=== PATIENT | female | born 1995 | race Two or more races ===

== ENCOUNTER 2021-07-11 12:49 | Observation (INO) | payer MEDICAID ==
[2021-07-11] MEDS ORDERED: PREN-96 PO (14:01)
== END 2021-07-11 17:48 | disposition home or self-care (01) ==
LOC: LDRP 12:49
PROVIDERS: ADMIT Obstetrics & Gynecology; ATTEND Obstetrics & Gynecology
DX: O26.892 Other specified pregnancy related conditions, second trimester (principal); R10.9 Unspecified abdominal pain; Z3A.21 21 weeks gestation of pregnancy; W01.0XXA Fall on same level from slipping, tripping and stumbling without subsequent striking against object, initial encounter; Y93.89 Activity, other specified; Y92.89 Other specified places as the place of occurrence of the external cause; Y99.9 Unspecified external cause status; Y99.8 Other external cause status
CPT/HCPCS: 59025; 76815; 81002; G0378

== ENCOUNTER 2021-11-19 11:00 | Observation (INO) | payer MEDICAID ==
[~2021-11-19] VITALS: Ht 162.6 cm; Wt 79.8 kg
[~2021-11-19 11:00] MED LIST: PREN-96 PO
== END 2021-11-19 12:54 | disposition home or self-care (01) ==
LOC: LDRP 11:00
PROVIDERS: ADMIT Obstetrics & Gynecology; ATTEND Obstetrics & Gynecology
DX: O48.0 Post-term pregnancy (principal); O62.9 Abnormality of forces of labor, unspecified; Z3A.40 40 weeks gestation of pregnancy
CPT/HCPCS: 59025; 76818; 81002; 94760; G0378

== ENCOUNTER 2021-11-21 19:07 | Observation (INO) | payer MEDICAID | END 2021-11-21 22:04 | disposition home or self-care (01) | LOC: LDRP 19:07 | PROVIDERS: ADMIT Obstetrics & Gynecology; ATTEND Obstetrics & Gynecology | DX: O48.0 Post-term pregnancy (principal); O36.8330 Maternal care for abnormalities of the fetal heart rate or rhythm, third trimester, not applicable or unspecified; Z3A.40 40 weeks gestation of pregnancy | CPT/HCPCS: 59025; 76818; 81002; 94760; G0378 ==

== ENCOUNTER 2021-11-23 15:15 | Inpatient (IN) | payer MEDICAID ==
[~2021-11-23] VITALS: Ht 162.6 cm; Wt 78.9 kg
[2021-11-23] MEDS ORDERED: PHISODERM TOP SOLN 240ML BTL TOP PRN (17:15)
[2021-11-23] MEDS ORDERED: DERMOPLAST 60ML BOTTLE TOP PRN (17:15)
[2021-11-23] MEDS ORDERED: PROMETHAZINE HCL 25 MG/ML 1ML IV PRN (17:15)
[2021-11-23] MEDS ORDERED: LIDOCAINE 2%HCL (LOCAL ANESTH.) INJ 10ml MDV IJ PRN (17:15)
[2021-11-23] MEDS ORDERED: BUTORPHANOL TARTRATE 2 MG/1 ML VIAL IV PRN ×2 (17:15)
[2021-11-23] MEDS: LACTATED RINGER'S 1,000 ML IV SCH (18:03)
[2021-11-23 18:06] LABS: Basophils # (auto) 0 10 ^3/uL (0-0.2); Basophils % (auto) 0.2 % (0.0-2.0); Eosinophils # (auto) 0 10 ^3/uL (0-0.8); Eosinophils % (auto) 0.4 % (0.0-7.0); Hematocrit 36.8 % (36.0-46.0); Hemoglobin 12.2 g/dL (12.2-16.2); Lymphocytes # (auto) 0.9 10 ^3/uL (0.4-5.4); Lymphocytes % (auto) 13.1 % (10.0-50.0); Mean Corpuscular Hemoglobin 29.6 pg (28.0-32.0); Mean Corpuscular Hgb Conc. 33.3 g/dL (32.0-36.0); Monocytes # (auto) 0.3 10 ^3/uL (0-1.3); Monocytes % (auto) 4.7 % (0.0-12.0); Neutrophils # (auto) 5.6 10 ^3/uL (1.6-8.6); Neutrophils % (auto) 81.6 % (37.0-80.0); Red Blood Cells 4.14 10^6/uL (4.0-5.20); Red Cell Distribution Width 13.7 % (11.8-14.3); White Blood Cell 6.9 10^3/uL (4.4-10.8)
[2021-11-23 18:06] LABS: Urine Bacteria FEW /hpf (None Seen); Urine Blood Negative /uL (Negative); Urine Mucus FEW (None Seen); Urine Specific Gravity 1.015 (1.001-1.035); Urine WBC 4 /hpf (0 - 5)
[2021-11-23 18:14] LABS: INR 0.87 (0.9-1.15); Partial Thromboplastin Time 27.6 sec (24.6-33.4)
[2021-11-23 18:16] LABS: Albumin 2.5 g/dL (3.4-5.0); Calcium 8.6 mg/dL (8.5-10.1); Potassium 3.4 mmol/L (3.5-5.1)
[2021-11-23 18:25] LABS: Bilirubin, Total 0.3 mg/dL (0.2-1.0); Total Protein 5.9 g/dL (6.4-8.2)
[2021-11-23] MEDS: miSOPROStol 50 MCG per PRE-CUT 1/2 TAB PO PRN ×2 (19:34→23:36)
[2021-11-23 20:33] LABS: Alcohol, Urine < 3.0 mg/dL (0-10); Amphetamine Screen, Urine NEGATIVE (NEGATIVE); Barbiturate Scree,Urine NEGATIVE (NEGATIVE); Benzodiazephine Screen, Urine NEGATIVE (NEGATIVE); Cannabinoid Screen, Urine NEGATIVE (NEGATIVE); Cocaine Screen, Urine NEGATIVE (NEGATIVE); Opiate Scree,Urine NEGATIVE (NEGATIVE); Phencyclidine Screen, Urine NEGATIVE (NEGATIVE)
[2021-11-24] MEDS: LACTATED RINGER'S 1,000 ML IV SCH ×4 (00:20→12:58)
[2021-11-24] MEDS ORDERED: ePHEDrine SULFATE 50 MG/ML AMP IV ONE ×2 (07:00→07:15)
[2021-11-24] MEDS ORDERED: ROPIVACAINE HCL 200 ML EPI SCH ×2 (07:00→07:15)
[2021-11-24] MEDS ORDERED: LIDOCAINE HCL 2 %PF INJ 10ML AMP IJ ONE ×3 (07:00→11:00)
[2021-11-24] MEDS ORDERED: fentaNYL CITRATE 100 MCG/2 ML VL IV ONE ×3 (07:00→11:00)
[2021-11-24] MEDS ORDERED: TERBUTALINE SULFATE 1 MG/ML 1ML VIAL SC PRN (07:00)
[2021-11-24] MEDS ORDERED: NS/OXYTOCIN 20UNITS 500 ML IV ONE ×2 (07:00→07:30)
[2021-11-24] MEDS ORDERED: NS/OXYTOCIN 20UNITS 1,000 ML IV SCH (07:00)
[2021-11-24] MEDS ORDERED: NALOXONE HCL 0.4 MG/ML VIAL IV ONE ×2 (07:00→07:15)
[2021-11-24] MEDS ORDERED: Lidocaine W-Epinephrine 1.5%-1:200,000 INJ 10ml Vial ONE (08:02)
[2021-11-24] MEDS: WITCH HAZEL-GLYCERIN PAD TOP PRN (17:32)
[2021-11-24] MEDS ORDERED: ONDANSETRON ODT 4 MG TAB PO PRN (18:00)
[2021-11-24] MEDS ORDERED: ACETAMINOPHEN 325 MG TAB PO PRN (18:00)
[2021-11-24] MEDS: IBUPROFEN 800 MG TAB PO SCH (19:12)
[2021-11-24] MEDS: DOCUSATE SOD 100 MG CAP PO SCH (22:31)
[2021-11-25] MEDS: IBUPROFEN 800 MG TAB PO SCH ×5 (00:54→23:34)
[2021-11-25] MEDS ORDERED: IBUP800T26 PO (05:57)
[2021-11-25] MEDS ORDERED: DOCU100C10 PO (05:57)
[2021-11-25 08:06] LABS: RPR Non Reactive (Non Reactive)
[2021-11-25] MEDS ORDERED: RHO (D) IMMUNE GLOBULIN 300 MCG INJ IM ONE (08:30)
[2021-11-25] MEDS: WITCH HAZEL-GLYCERIN PAD TOP PRN (10:49)
[2021-11-25 11:00] VITALS: BP 100/55
[2021-11-25 15:11] VITALS: BP 102/62
[2021-11-25 15:36] VITALS: BP 94/64
[2021-11-25] MEDS: DOCUSATE SOD 100 MG CAP PO SCH (22:29)
[2021-11-26 07:00] VITALS: BP 109/71
== END 2021-11-26 10:41 | disposition home or self-care (01) | DRG 560 ==
LOC: LDRP 15:15 → OBSVTOIN 16:25 → LDRP 11-24 20:15
PROVIDERS: ADMIT Obstetrics & Gynecology; ATTEND Obstetrics & Gynecology
PROC: 10E0XZZ Delivery of Products of Conception, External Approach (ICD-10-PCS; principal; 2021-11-24)
PROC: 0KQM0ZZ Repair Perineum Muscle, Open Approach (ICD-10-PCS; 2021-11-24)
PROC: 3E0R3BZ Introduction of Anesthetic Agent into Spinal Canal, Percutaneous Approach (ICD-10-PCS; 2021-11-24)
PROC: 00HU33Z Insertion of Infusion Device into Spinal Canal, Percutaneous Approach (ICD-10-PCS; 2021-11-24)
PROC: 3E0234Z Introduction of Serum, Toxoid and Vaccine into Muscle, Percutaneous Approach (ICD-10-PCS; 2021-11-25)
DX: O48.0 Post-term pregnancy (principal); Z37.0 Single live birth; O26.893 Other specified pregnancy related conditions, third trimester; O70.1 Second degree perineal laceration during delivery; Z20.822 Contact with and (suspected) exposure to COVID-19; O77.0 Labor and delivery complicated by meconium in amniotic fluid; Z3A.40 40 weeks gestation of pregnancy; Z67.40 Type O blood, Rh positive
CPT/HCPCS: 36415; 59025; 59409; 62282; 76818; 80053; 80307; 81001; 81002; 85025; 85610; 85730; 86592; 86850; 86900; 86901; 90384; 94760; 96360; 96361; 96365; 96366; 96372; G0378; J2001

== ENCOUNTER → 2024-08-15 | Outpatient (CLI) | payer MEDICAID ==
[~2024-08-15] MED LIST changes: +DOCU-265 PO; +IBUP-1455 PO
== END | disposition home or self-care (01) ==
LOC: LAB 13:46
PROVIDERS: ATTEND Obstetrics & Gynecology
DX: N91.2 Amenorrhea, unspecified (principal)
CPT/HCPCS: 36415; 84144; 84702

== ENCOUNTER 2025-02-20 09:11 | Outpatient (CLI) | payer MEDICAID ==
[2025-02-20 10:10] LABS: Hematocrit 38.7 % (36.0-46.0); Hemoglobin 13.5 g/dL (12.2-16.2); Mean Corpuscular Hemoglobin 31.1 pg (28.0-32.0); Mean Corpuscular Volume 89.2 fL (80.0-100.0); Nucleated Red Blood Cells % 0.1 %
[2025-02-22 07:07] LABS: Chlamydia Trachomatis, NAA Negative (Negative); Neisseria gonorrhoeae, NAA Negative (Negative)
== END 2025-02-20 17:00 | disposition home or self-care (01) ==
LOC: LAB 09:11
PROVIDERS: ATTEND Obstetrics & Gynecology
DX: Z34.80 Encounter for supervision of other normal pregnancy, unspecified trimester (principal); Z3A.00 Weeks of gestation of pregnancy not specified
CPT/HCPCS: 36415; 83036; 85025; 86780; 86850; 86900; 86901

== ENCOUNTER 2025-03-06 08:46 | Outpatient (CLI) | payer MEDICAID ==
[2025-03-08 06:06] LABS: Chlamydia Trachomatis, NAA Negative (Negative); Neisseria gonorrhoeae, NAA Negative (Negative)
== END 2025-03-06 17:00 | disposition home or self-care (01) ==
LOC: LAB 08:46
PROVIDERS: ATTEND Obstetrics & Gynecology
DX: Z34.00 Encounter for supervision of normal first pregnancy, unspecified trimester (principal); Z3A.00 Weeks of gestation of pregnancy not specified
CPT/HCPCS: 36415; 82951; 83036

== ENCOUNTER 2025-04-06 04:41 | Inpatient (IN) | payer MEDICAID ==
--- NOTE | 2025-04-05 09:48 | DVHHP ---
ADMIT DATE: 04/06/2025 CHIEF COMPLAINT: Desires repeat section. HISTORY OF PRESENT ILLNESS: The patient is a female with due date of 04/12. Estimated gestational age of 39 weeks. Admitted for repeat section. The patient has been laureen. She wishes to have repeat section. PAST MEDICAL HISTORY: None. PAST SURGICAL HISTORY: x1. SOCIAL HISTORY: None. FAMILY HISTORY: None. ALLERGIES: No known drug allergies. REVIEW OF SYSTEMS: Consistent with HPI. PHYSICAL EXAMINATION: VITAL SIGNS: Stable, afebrile. HEENT: Within normal limits. CARDIOVASCULAR: Regular rate and rhythm. LUNGS: Clear to auscultation. BREASTS: Symmetrical. No masses. ABDOMEN: Gravid. Positive heart. PELVIC: Deferred. EXTREMITIES: No clubbing, cyanosis, or edema. IMPRESSION: * Term with previous section x1. * Desires repeat section. PLAN: Repeat section. Informed consent was obtained. Risks, complications of surgery including infection, bleeding, hematoma formation discussed with the patient. Risk of DVT, pulmonary embolism discussed with the patient. The patient fully understands. All questions answered. The patient wishes to proceed with planned procedure. DO TIERA Paz/ TID: [id number] RECEIPT: [id number]
[2025-04-05 10:09] LABS: Hematocrit 37.9 % (36.0-46.0); Hemoglobin 12.8 g/dL (12.2-16.2); Mean Corpuscular Hemoglobin 30.3 pg (28.0-32.0); Mean Corpuscular Volume 89.4 fL (80.0-100.0); Nucleated Red Blood Cells % 0.2 %
[2025-04-05 10:21] LABS: Urine Protein, UAD Negative (Negative)
[2025-04-05 10:23] LABS: Alanine Aminotransferase 13 U/L (7-40); Albumin 3.5 g/dL (3.2-4.8); Anion Gap 12 (5-15); BUN/Creatinine Ratio 11.8 (10.0-20.0); Calcium 8.8 mg/dL (8.7-10.4); Carbon Dioxide 21 mmol/L (20-31); Potassium 3.6 mmol/L (3.5-5.1); Sodium 140 mmol/L (136-145); Total Protein 5.8 g/dL (5.7-8.2)
[2025-04-05 10:24] LABS: Alkaline Phosphatase 151 U/L (46-116); Bilirubin, Total 0.4 mg/dL (0.2-1.0); Blood Urea Nitrogen 6 mg/dL (9-23); Chloride 107 mmol/L (98-107); Glucose 109 mg/dL (74-106); INR 0.88 (0.9-1.15); Partial Thromboplastin Time 24.4 SEC (24.5-34.5); Prothrombin Time 9.4 sec (9.3-11.8)
[2025-04-05 10:33] LABS: Amphetamine Screen, Urine Neg (NEGATIVE); Barbiturate Scree,Urine Neg (NEGATIVE); Benzodiazephine Screen, Urine Neg (NEGATIVE); Cannabinoid Screen, Urine Neg (NEGATIVE); Cocaine Screen, Urine Neg (NEGATIVE); Opiate Scree,Urine Neg (NEGATIVE); Phencyclidine Screen, Urine Neg (NEGATIVE)
[~2025-04-06] VITALS: Ht 160 cm; Wt 81.6 kg
[2025-04-06] VITALS (16 sets, daily range): BP systolic 94–116; BP diastolic 52–71; PULSE 61–95; RESP 16–18; TEMP 97.4–98; O2SAT 93–99
[2025-04-06] MEDS: LACTATED RINGER'S 1,000 ML IV SCH (06:21)
[2025-04-06] MEDS: ceFAZolin 2 GM/D5W50ml 50 ML IV ONE (06:22)
[2025-04-06] MEDS ORDERED: DOCU-94 PO (07:11)
[2025-04-06] MEDS ORDERED: IBUP-1456 PO (07:11)
[2025-04-06] MEDS ORDERED: HYDR-4072 PO (07:11)
[2025-04-06] MEDS: LACT. RINGERS/OXYTOCIN 20UNITS 1,000 ML IV ONE (07:15)
[2025-04-06] MEDS ORDERED: ceFAZolin 1GM/50ML 50 ML IV SCH (07:15)
[2025-04-06] MEDS ORDERED: ONDANSETRON HCL 4 MG/2 ML VIAL IV PRN ×2 (07:15→08:30)
[2025-04-06] MEDS ORDERED: MORPHINE SULF PF 5 MG/10 ML VIAL ONE (07:20)
[2025-04-06] MEDS ORDERED: fentaNYL CITRATE 100 MCG/2 ML VL ONE (07:20)
[2025-04-06] MEDS ORDERED: METOCLOPRAMIDE HCL 5MG/ml INJ 2ml VIAL ONE (07:21)
[2025-04-06] MEDS ORDERED: ONDANSETRON HCL 4 MG/2 ML VIAL ONE (07:21)
[2025-04-06] MEDS ORDERED: OXYTOCIN 10UNIT/ML 1ML VIAL ONE (07:33)
--- NOTE | 2025-04-06 07:56 | DVHOP2 ---
Operative Report DATE OF OPERATION:04/06/25 PREOPERATIVE DIAGNOSES: [term preg desires rcs,previous csx1] POSTOPERATIVE DIAGNOSES: [same] OPERATION PERFORMED: Repeat Section FINDINGS: [f] infant. Apgars of [8] and [9]. Weight [good] crying tone. [clear] amniotic fluid. Placenta and three-vessel were intact. Normal tubes, ovaries, and uterus. Moderate scar tissue. SURGEON: Dasha Baptiste D.O. SCREW MACHINE OPERATOR SWISS TYPE: restoration technician, jessica]. ANESTHESIOLOGIST: Geovanny liao ANESTHESIA: [Duramorph spinal, regional]. COMPLICATIONS: [none]. ESTIMATED BLOOD LOSS: [500] mL. BLOOD PRODUCTS USED: [none]. PROCEDURE IN DETAIL: The patient was taken to the operating room, placed in sitting position, and spinal was placed without difficulty. She was then prepped and draped in a sterile fashion. A low Pfannenstiel incision was made scapel. At this point, it was carried down through the rectus fascia, nicked in the midline, and carried laterally. The rectus muscles were in the midline. Peritoneum was identified and entered with sharp dissection. Vesicouterine peritoneum was taken off the lower uterine segment. A lower uterine transverse incision was made with a scalpel down the chorionic membranes, ruptured with hemostat. was in vertex position. One hand was placed in the lower uterine segment. Head was essentially delivered spontaneously. Nose and mouth were bulb suctioned. Shoulders and torso were delivered without difficulty. Again, pharynx, nose, and mouth were re-suctioned with vigorous crying tone. Cord was cut. The infant was handed off to the awaiting Respiratory. At this point, umbilical blood sample was taken. Placenta was removed. Uterus was exteriorized, cleared off all clots and debris, irrigated, and closed with a double layer of 0-Vicryl. The vesicouterine peritoneum was incorporated into this closure. We had complete hemostasis. EBL was [500] mL. The instrument, lap, and sponge count was correct x1. The uterus was placed back into the peritoneum. The peritoneal cavity was re-inspected and the lower uterine incision with good hemostasis. We closed the peritoneum with running continuous of 2-0 Vicryl. The Rectus Fascia was closed with 0-PDS, running continuous, looped-0. The skin was closed undermined, irrigated, and close with luh. CONDITION: The patient's and the infant's condition is stable and but guarded. Visit Coding OBGYN Date of Service: Apr 06, 2025 Billing Provider: DASHA BAPTISTE DO DELIVERY DRIVER ASSISTANT Common Visit Codes: [id number] INP/OBS CARE (HIGH) DELIVERY DRIVER ASSISTANT Procedure Codes: [id number] DELIVERY ONLY DASHA BAPTISTE DO Apr 06, 2025 07:56
[2025-04-06] MEDS ORDERED: KETOROLAC TROMETH 30 MG/ML 1ML VIAL ONE (07:58)
--- NOTE | 2025-04-06 07:58 | POSTOP ---
Post-Operative Note Post-Operative Note Preop Diagnosis term preg desires rcs,previous csx1 Postop Diagnosis: same Operation performed rcs Specimen baby girl,vx,apgars 8-9 Anesthesia: Regional Anesthesiologist: reyes Blood Loss(fluid mgmt) 500ml Surgeon Martin Baptiste Corking Machine Operator vale Implant na Complications & Mgmt none Date 04/06/25 Time 07:56 Visit Coding OBGYN Date of Service: Apr 06, 2025 Billing Provider: MARTIN BAPTISTE DO GENERAL MACHINIST Common Visit Codes: [id number] INP/OBS CARE (HIGH) GENERAL MACHINIST Procedure Codes: [id number] DELIVERY ONLY MARTIN BAPTISTE DO Apr 06, 2025 07:58
[2025-04-06] MEDS ORDERED: HYDROmorphone HCL 2 MG/ML VL/or syr IV PRN ×2 (08:30→10:30)
[2025-04-06] MEDS ORDERED: NALOXONE HCL 0.4 MG/ML VIAL IV PRN (08:30)
[2025-04-06] MEDS ORDERED: diphenhydrAMINE HCL 50 MG/1 ML VL IV PRN (08:30)
[2025-04-06] MEDS: ceFAZolin 1GM/50ML 50 ML IV SCH (13:48)
[2025-04-06] MEDS: RHO (D) IMMUNE GLOBULIN 300 MCG INJ IM ONE (16:47)
[2025-04-06 21:26] LABS: Hematocrit 35.5 % (36.0-46.0); Hemoglobin 12.1 g/dL (12.2-16.2); Mean Corpuscular Hemoglobin 30.3 pg (28.0-32.0); Mean Corpuscular Volume 88.8 fL (80.0-100.0); Nucleated Red Blood Cells % 0.0 %
[2025-04-06] MEDS: ACETAMINOPHEN IV 1000 MG/100ML (10MG/ML) IV PRN (22:24)
[2025-04-07] VITALS (10 sets, daily range): BP systolic 91–111; BP diastolic 52–71; PULSE 58–95; RESP 16–18; TEMP 97.8–98.1; O2SAT 94–99
--- NOTE | 2025-04-07 00:06 | DVHPN2 ---
Progress Note Date Seen: Apr 07, 2025 Subjective Crystal is sitting up in bed and baby on the R breast. Patient states she is unsure if baby is actually eating or just "sucking for comfort" SUBJECTIVE: -Lochia minimal -Clear liquid diet well tolerated. -Ambulating well w/o feeling dizzy or lightheaded. Jones catheter still in place -Pain relieved with IV medication PRN -Passing flatus but no BM yet. - w/o problem vital signs Vital Sign Date Time Temp Pulse Resp B/P (MAP) Pulse Ox O2 Delivery O2 Flow Rate FiO2 04/06/25 23:00 98.0 81 16 103/52 (69) 99 98.0 04/06/25 19:10 Room Air 04/06/25 08:21 0 96 Total Intake and Output 04/06/25 04/06/25 04/07/25 15:00 23:00 07:00 Intake Total 365 ml Output Total 445 ml 200 ml Balance -80 ml -200 ml medications Current Medications Medications Dose Ordered Sig/Dominique Route Start Time Stop Time Status Last Admin Dose Admin Lactated Ringer's 1,000 ml @ 125 mls/hr Q8H IV 04/06/25 05:00 04/06/25 16:53 125 MLS/HR Ondansetron HCl 4 mg Q4HP PRN IV 04/06/25 07:15 Diphenhydramine HCl 25 mg Q4HP PRN IV 04/06/25 08:30 Ondansetron HCl 4 mg Q4HP PRN IV 04/06/25 08:30 04/06/25 12:00 Cancel Cefazolin Sodium 50 ml @ 100 mls/hr Q8H IV 04/06/25 14:00 04/07/25 06:29 04/06/25 21:47 100 MLS/HR Acetaminophen 1,000 mg Q8HPRN PRN IV 04/06/25 10:30 04/07/25 10:29 04/06/25 22:24 1,000 MG Hydromorphone HCl 1 mg Q4HP PRN IV 04/06/25 10:30 laboratory and microbiology Laboratory Tests 04/06/25 20:55 04/05/25 09:25 Test 04/05/25 09:25 Range/Units Serum Glucose 109 H 74-106 mg/dL Objective OBJECTIVE: -A&O x4. No apparent distress. Affect appropriate -Afebrile, VSS -Chest: heart and lung sounds normal. -Breasts: Nipples intact w/o cracks or soreness -Abdomen: normal BS, soft, non-tender, no rebound or guarding, fundus firm @ U- 1, -Lower abdominal incision site with dressing dry and intact. No edema, erythema or induration -Extremities: no edema or tenderness Problems(with codes): (1) Status post delivery Assessment/Plan ASSESSMENT 29 yo now Post operative & ppd # 1 s/p repeat Section, doing well. Blood Type: A- Breast feeding Rubella Immune PLAN -Assisted patient with and discussed feeding cues. Answered all patient questions -Offer Rhogam before discharge -Continue pain management with IV medications as previously ordered. Will transition to PO medications in the AM -Regular diet OK. Increase fluid intake and fiber in diet to promote regular bowel movements, Laxative PRN -Educated patient on self-care -Continue routine care Plan discussed with: Patient, Spouse (asleep at bedside) Visit Coding OBGYN Date of Service: Apr 07, 2025 Billing Provider: DARRON العراقي CNM WHEEL BORER Common Visit Codes: [id number] INP/OBS CARE(MOD) DARRON العراقي CNM Apr 07, 2025 00:06
[2025-04-07] MEDS ORDERED: HYDROcodone-ACET 5/325MG TAB PO PRN ×2 (06:15)
[2025-04-07] MEDS ORDERED: BISACODYL 10 MG RECT SUPP PR PRN (06:15)
[2025-04-07] MEDS: IBUPROFEN 800 MG TAB PO PRN (07:06)
[2025-04-07 08:47] LABS: Hematocrit 38.6 % (36.0-46.0); Hemoglobin 13.2 g/dL (12.2-16.2); Mean Corpuscular Hemoglobin 30.5 pg (28.0-32.0); Mean Corpuscular Volume 89.3 fL (80.0-100.0); Nucleated Red Blood Cells % 0.0 %
[2025-04-07] MEDS: DOCUSATE SOD 100 MG CAP PO SCH (09:51)
[2025-04-07] MEDS: SIMETHICONE 80 MG CHEWABLE TABLET PO SCH (11:54)
[2025-04-08 03:00] VITALS: BP 97/71; PULSE 85; RESP 20; TEMP 97.8; O2SAT 99
--- NOTE | 2025-04-08 06:12 | DVHPN2 ---
Progress Note Date Seen: Apr 08, 2025 Subjective S: > Lochia minimal. > Regular diet well tolerated. > Ambulating and voiding well w/o feeling dizzy or lightheaded. > Pain relieved with oral analgesics. > Passing flatus but no BM yet. > w/o problem > Desires and Requests to be discharged today vital signs Vital Sign Date Time Temp Pulse Resp B/P (MAP) Pulse Ox O2 Delivery O2 Flow Rate FiO2 04/08/25 03:00 97.8 85 20 97/71 (80) 99 97.8 04/07/25 19:00 Room Air 04/06/25 08:21 0 96 Total Intake and Output 04/07/25 04/07/25 04/08/25 15:00 23:00 07:00 Output Total 1000 ml 400 ml Balance -1000 ml -400 ml medications Current Medications Medications Dose Ordered Sig/Dominique Route Start Time Stop Time Status Last Admin Dose Admin Ondansetron HCl 4 mg Q4HP PRN IV 04/06/25 07:15 Cancel Diphenhydramine HCl 25 mg Q4HP PRN IV 04/06/25 08:30 Cancel Ondansetron HCl 4 mg Q4HP PRN IV 04/06/25 08:30 04/06/25 12:00 Cancel Hydromorphone HCl 1 mg Q4HP PRN IV 04/06/25 10:30 Cancel Docusate Sodium 100 mg Q12HR PO 04/07/25 10:00 04/07/25 09:51 100 MG Dimethicone 80 mg QID PO 04/07/25 12:00 04/07/25 17:33 80 MG Bisacodyl 10 mg DAILYP PRN TN 04/07/25 06:15 Ibuprofen 800 mg Q8HP PRN PO 04/07/25 06:15 04/08/25 01:26 800 MG Acetaminophen/ Hydrocodone Bitart 1 tab Q4HPRN PRN PO 04/07/25 06:15 Acetaminophen/ Hydrocodone Bitart 2 tab Q4HPRN PRN PO 04/07/25 06:15 laboratory and microbiology Laboratory Tests 04/07/25 08:26 04/05/25 09:25 Test 04/05/25 09:25 Range/Units Serum Glucose 109 H 74-106 mg/dL Objective O: > A&O x3 NAD. > Afebrile, VSS > Chest: heart and lung sounds normal. > Breasts: Nipples intact w/o cracks or soreness > Abdomen: normal BS, soft, non-tender, no rebound or guarding, fundus firm @ U-1, > Lower abdominal Incision site with Sylke dressing on, same clean, dry and intact. No edema, erythema or induration > Extremities: no edema or tenderness > Lochia - minimal Assessment/Plan > 29yo now G3, 2104 (1 set of twins), Post operative & ppd #2 s/p Repeat Section doing well. > Blood Type: A Rh: Negative; Rhogam given on 04/07/25 > Breast feeding feeding > Rubella Immune > Pain control with oral medications > Bowel regimen: Increase fluid intake and fiber in diet, Laxative PRN > PP BCM Plan: Undecided > Discharge plan: May discharge home later today if condition remains stable Plan discussed with: Patient, Spouse (asleep at bedside) Visit Coding OBGYN Date of Service: Apr 08, 2025 Billing Provider: CESILIA CHEW CNM RETURNED GOODS REPAIRER Common Visit Codes: [id number] INP/OBS CARE(HIGH) CESILIA CHEW CNM Apr 08, 2025 06:12
--- NOTE | 2025-04-08 06:28 | DVHDS2 ---
Discharge Summary Date of Admission Apr 06, 2025 at 04:41 Date of Discharge: Apr 08, 2025 Admitting Diagnosis IUP at 39 weeks 1d h/o Section x1 Desires Repeat Section Wounds: Low Transverse abdominal incision wound with Sylke dressing on, same C/D/I Labs/Diagnostic Data: Laboratory Results Test 04/07/25 08:26 04/06/25 11:03 04/05/25 09:25 04/05/25 09:10 White Blood Count 8.7 10^3/uL (4.4-10.8) Red Blood Count 4.32 10^6/uL (4.0-5.20) Hemoglobin 13.2 g/dL (12.2-16.2) Hematocrit 38.6 % (36.0-46.0) Mean Corpuscular Volume 89.3 fL (80.0-100.0) Mean Corpuscular Hemoglobin 30.5 pg (28.0-32.0) Mean Corpuscular Hemoglobin Concent 34.2 g/dL (32.0-36.0) Red Cell Distribution Width 13.9 % (11.8-14.3) Platelet Count 152 10^3/uL (140-450) Mean Platelet Volume 8.3 fL (6.9-10.8) Neutrophils (%) (Auto) 86.5 % (37.0-80.0) Lymphocytes (%) (Auto) 9.6 % (10.0-50.0) Monocytes (%) (Auto) 2.8 % (0.0-12.0) Eosinophils (%) (Auto) 0.7 % (0.0-7.0) Basophils (%) (Auto) 0.4 % (0.0-2.0) Neutrophils # (Auto) 7.5 10 ^3/uL (1.6-8.6) Lymphocytes # (Auto) 0.8 10 ^3/uL (0.4-5.4) Monocytes # (Auto) 0.2 10 ^3/uL (0-1.3) Eosinophils # (Auto) 0.1 10 ^3/uL (0-0.8) Basophils # (Auto) 0 10 ^3/uL (0-0.2) Nucleated Red Blood Cells 0.0 % Hepatitis C Antibody Negative (Negative) Prothrombin Time 9.4 sec (9.3-11.8) Prothrombin Time INR 0.88 (0.9-1.15) Activated Partial Thromboplast Time 24.4 SEC (24.5-34.5) Sodium Level 140 mmol/L (136-145) Potassium Level 3.6 mmol/L (3.5-5.1) Chloride Level 107 mmol/L (98-107) Carbon Dioxide Level 21 mmol/L (20-31) Anion Gap 12 (5-15) Blood Urea Nitrogen 6 mg/dL (9-23) Creatinine 0.51 mg/dL (0.550-1.02) Glomerular Filtration Rate Calc 128 mL/min (>90) BUN/Creatinine Ratio 11.8 (10.0-20.0) Serum Glucose 109 mg/dL (74-106) Calcium Level 8.8 mg/dL (8.7-10.4) Total Bilirubin 0.4 mg/dL (0.2-1.0) Aspartate Amino Transferase (AST) 14 U/L (13-40) Alanine Aminotransferase (ALT) 13 U/L (7-40) Alkaline Phosphatase 151 U/L (46-116) Total Protein 5.8 g/dL (5.7-8.2) Albumin 3.5 g/dL (3.2-4.8) Treponema pallidum Antibody Non-reactive (Negative) Urine Color Light-yellow (Yellow) Urine Clarity Clear (Clear) Urine pH 7.5 (5.0-9.0) Urine Specific [place] 1.017 (1.001-1.035) Urine Protein Negative (Negative) Urine Ketones Negative (Negative) Urine Blood Negative /uL (Negative) Urine Nitrite Negative (Negative) Urine Bilirubin Negative (Negative) Urine Urobilinogen Normal mg/dL (Negative) Urine Leukocyte Esterase Negative /uL (Negative) Urine RBC 1 /hpf (0 - 4) Urine Microscopic WBC 1 /HPF (0-5) Urine Squamous Epithelial Cells Few /hpf (<5) Urine Bacteria None seen /hpf (None Seen) Urine Mucus Few (None Seen) Urine Glucose Normal mg/dL (Normal) Urine Opiates Screen Neg (NEGATIVE) Urine Fentanyl Screen Neg (NEGATIVE) Urine Barbiturates Screen Neg (NEGATIVE) Urine Phencyclidine Screen Neg (NEGATIVE) Urine Amphetamines Screen Neg (NEGATIVE) Urine Benzodiazepines Screen Neg (NEGATIVE) Urine Cocaine Screen Neg (NEGATIVE) Urine Cannabinoids Screen Neg (NEGATIVE) Other Laboratory Tests 04/07/25 08:26 04/05/25 09:25 Brief Hx & Hospital Course: Ms. Fontaine was admitted on 04/06/25 at 39w 1d EGA for Repeat Section. She has h/o section x1. and desires a repeat section. She had Section under Spinal anesthesia (See Operative Note for details) Normal post-operative and course thus far; meeting milestones w/o any sign of infection or complication. Operations or Procedures Repeat Section Condition at Discharge: Good Final Diagnosis/Problems List > same > Term - Delivered > Repeat Cesareaan Section Discharge Disposition: Home Discharge Instruct/Medications Diet: Regular Diet comment: Routine regular diet rich in fiber, protein, iron and vitamin C with adequate fluid intake. Activity: See Comment Activity comment: Advance as tolerated. Balance activities with rest periods. No heavy lifting, pushing or straining. Pelvic rest x 6weeks Follow Up/Referral: Follow up with OB Provider in 1 week Medications: > Docusate Sodium > Hydrocodone- Acetaminophen > Ibuprofen > Vitamin W/Ferrous Fumara Scheduled Docusate Sodium (Colace), 1 CAP PO BID Vit W/ Ferrous Fumara ( One Daily), 1 TAB PO DAILY, (Reported) Scheduled PRN Docusate Sodium (Docusate Sodium), 100 MG PO HS PRN Hydrocodone-Acetaminophen (Hydrocodone/Acetaminophen 10-325 mg), 1 TAB PO Q6HPRN PRN Ibuprofen (Ibuprofen), 800 MG PO TID PRN Ibuprofen Micronized (Ibuprofen), 800 MG PO Q6HP PRN Discharge Statement: > Post operative and self care instructions given. > emergency signs and symptoms including but not limited to pre- eclampsia precautions and signs of infection, PPH & of PPD reviewed with patient. > Follow up with OB Provider in 1 week "Patient was advised to return to the ER or call 911 if any headaches, dizziness, shortness of breath, chest pain, abdominal pain, bleeding, fevers, or worsening of medical condition. Patient was counseled about treatment plan, medications, possible side effects, patientverbalized understanding. All questions were answered to the best of my ability. This discharge took greater then 30 minutes in planning, reviewing documentation, counseling the patient, and discussing with other team members." ASSESSMENT ASSESSMENT Hospital Course Ms. Fontaine was admitted on 04/06/25 at 39w 1d EGA for Repeat Section. She has h/o section x1. and desires a repeat section. She had Section under Spinal anesthesia (See Operative Note for details) Normal post-operative and course thus far; meeting milestones w/o any sign of infection or complication. Assessment same Term ; Delivered Repeat Section Visit Coding OBGYN Date of Service: Apr 08, 2025 Billing Provider: CESILIA CHEW CNM LOOSELEAF BINDER COVERER Common Visit Codes: [id number] DISCH DAY <30MIN CESILIA CHEW CNM Apr 08, 2025 06:28
[2025-04-08 07:00] VITALS: BP 101/71; PULSE 97; RESP 16; TEMP 98; O2SAT 95
[2025-04-08 11:00] VITALS: BP 105/76; PULSE 85; RESP 14; TEMP 98.7; O2SAT 97
== END 2025-04-08 15:06 | disposition home or self-care (01) | DRG 540 ==
LOC: LDRP 04:41
PROVIDERS: ADMIT Obstetrics & Gynecology; ATTEND Obstetrics & Gynecology
PROC: 3E0234Z Introduction of Serum, Toxoid and Vaccine into Muscle, Percutaneous Approach (ICD-10-PCS; 2025-04-06)
PROC: 10D00Z1 Extraction of Products of Conception, Low, Open Approach (ICD-10-PCS; principal; 2025-04-06 07:19)
DX: O34.211 Maternal care for low transverse scar from previous cesarean delivery (principal); O26.893 Other specified pregnancy related conditions, third trimester; Z37.0 Single live birth; O34.219 Maternal care for unspecified type scar from previous cesarean delivery; Z3A.39 39 weeks gestation of pregnancy; Z67.11 Type A blood, Rh negative
CPT/HCPCS: 36415; 59025; 80053; 80307; 81001; 81002; 85025; 85610; 85730; 86780; 86803; 86850; 86870; 86900; 86901; 90384; 94760; 94762; 96360; 96361; 96365; 96366; G0378; J0131; J1885; J2405; J2590